=== PATIENT | female | born 1935 | race Caucasian/White ===

== ENCOUNTER 2018-05-23 07:03 | Outpatient (CLI) | payer MEDICARE, OTHER | END 2018-05-23 07:04 | disposition critical access hospital (66) | LOC: EMS 07:03 | PROVIDERS: ATTEND Surgery | DX: R11.10 Vomiting, unspecified (principal); R19.7 Diarrhea, unspecified | CPT/HCPCS: A0425; A0427 ==

== ENCOUNTER 2018-05-23 07:37 | Observation (INO) | payer MEDICARE, OTHER ==
[2018-05-23] MEDS ORDERED: ONDANSETRON 4 MG/2 ML VIAL IVP STA (08:07)
[2018-05-23] MEDS ORDERED: SODIUM CHLORIDE 0.9% 1,000 ML IV ONE ×2 (08:07→09:18)
[2018-05-23] MEDS ORDERED: fentaNYL 100 MCG/2 ML VIAL IVP STA (08:08)
--- NOTE | 2018-05-23 08:12 | ED Physician Documentation ---
PD HPI ABD PAIN - Stated complaint Stated Complaint: D/N/V - Chief complaint Chief Complaint: Abd Pain - History obtained from History obtained from: Patient, Family - History of Present Illness Timing - onset: Last night Quality: Aching Location: Other (lower abd.) Associated symptoms: Nausea, Vomiting, Diarrhea. No: Fever Similar symptoms before: Diagnosis (Similar symptoms when hospitalized for bowel obstruction two years ago.) - Additional information Additional information: The patient is an 82-year-old female, visiting here from [place], who presents with vomiting and watery diarrhea that started during the night. She has had multiple episodes of vomiting, and 3 episodes of watery diarrhea. She reports mild lower abdominal pain. She denies fever or dysuria. She had similar symptoms about 2 years ago when she was hospitalized with a bowel obstruction. The bowel obstruction resolved without surgery at that time. She is status post hiatal hernia repair, and status post surgery for a perforated ulcer. Review of Systems Constitutional: denies: Fever Nose: denies: Congestion Throat: denies: Sore throat Cardiac: denies: Chest pain / pressure Respiratory: denies: Dyspnea, Cough GI: reports: Abdominal Pain, Nausea, Vomiting, Diarrhea : denies: Dysuria Skin: denies: Rash Musculoskeletal: reports: Extremity swelling (chronically). 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 Acidophilus/L. Rhamnosus 1 each PO DAILY 05/23/18 05/23/18 [Probiotic 15 Billion Cell Cap] Levothyroxine [Synthroid] 25 mcg PO DAILY 05/23/18 05/23/18 Melatonin 10 mg PO QPM 05/23/18 05/23/18 Simvastatin 40 mg PO QPM 05/23/18 05/23/18 Sotalol HCl [Sotalol AF] 120 mg PO DAILY 05/23/18 05/23/18 Trospium Chloride 20 mg PO BID 05/23/18 05/23/18 Vit A/Vit C/Vit E/Zinc/Copper 1 cap PO BID 05/23/18 05/23/18 [Preservision Areds Softgel] - Allergies Allergies/Adverse Reactions: Allergies Allergy/AdvReac Type Severity Reaction Status Date / Time diltiazem [From Cardizem] Allergy Rash Verified 05/23/18 07:47 tramadol AdvReac Nausea Verified 05/23/18 07:47 - Social History Does the pt smoke?: No Smoking Status: Never smoker Does the pt drink ETOH?: No Does the pt have substance abuse?: No - Immunizations Immunizations are current?: Yes PD ED PE NORMAL - Vitals Vital signs reviewed: Yes (borderline systolic hypertension) - General General: Alert and oriented X 3, Well developed/nourished, Other (Appears fatigued.) - HEENT HEENT: Atraumatic, Pharynx benign, Other (Dry mucous membranes.) - Neck Neck: No adenopathy, No JVD - Cardiac Cardiac: No murmur, Other (regular rate, irregularly irregular rhythm.) - Respiratory Respiratory: No respiratory distress, Clear bilaterally - Abdomen Abdomen: Soft, Other (Diminished bowel tones, with mild tenderness to palpation in the right lower quadrant, without rebound or guarding.) - Back Back: No CVA TTP - Derm Derm: No rash - Extremities Extremities: No calf tenderness / cord, Other (Trace pedal edema bilaterally.) - Neuro Neuro: Alert and oriented X 3, No motor deficit, Normal speech Results - Vitals Vitals: Vital Signs - 24 hr 05/23/18 05/23/18 05/23/18 07:42 08:00 10:00 Temperature 36.2 C L Heart Rate 76 73 82 Respiratory 16 13 Rate Blood Pressure 142/62 H 140/64 H O2 Saturation 94 96 94 05/23/18 11:00 Temperature Heart Rate 87 Respiratory 15 Rate Blood Pressure 141/62 H O2 Saturation 96 Oxygen O2 Source Room air - Labs Labs: Laboratory Tests 05/23/18 05/23/18 05/23/18 08:25 08:25 09:25 WBC 10.8 RBC 4.48 Hgb 15.4 Hct 44.9 MCV 100.2 H MCH 34.3 H MCHC 34.2 RDW 13.0 Plt Count 195 MPV 7.9 Neut # (Auto) 9.1 H Lymph # (Auto) 0.7 L Traill # (Auto) 0.7 Eos # (Auto) 0.2 Baso # (Auto) 0.1 Absolute Nucleated RBC 0.00 Nucleated RBC % 0.0 Sodium 138 Potassium 4.3 Chloride 103 Carbon Dioxide 27 Anion Gap 8.0 BUN 27 H Creatinine 1.0 Estimated GFR (MDRD) 53 L Glucose 133 H Calcium 9.3 Total Bilirubin 0.9 AST 20 ALT 15 Alkaline Phosphatase 86 Total Protein 7.2 Albumin 4.0 Globulin 3.2 Albumin/Globulin Ratio 1.3 Lipase 34 Urine Color YELLOW Urine Clarity HAZY Urine pH 6.0 Ur Specific [place] 1.015 Urine Protein NEGATIVE Urine Glucose (UA) NEGATIVE Urine Ketones NEGATIVE Urine Occult Blood NEGATIVE Urine Nitrite POSITIVE H Urine Bilirubin NEGATIVE Urine Urobilinogen 0.2 (NORMAL) Ur Leukocyte Esterase TRACE H Urine RBC 0-5 Urine WBC >25 H Ur Squamous Epith Cells RARE Squamous Urine Bacteria Moderate H Ur Microscopic Review INDICATED Urine Culture Comments INDICATED - Rads (name of study) CT abd/pelvis Radiology: Prelim report reviewed, EMP read contemporaneously, See rad report ( 1) Early or incomplete small bowel obstruction with short segment of wall thickening in the mid ileum. Small bowel 3.3 cm. 2) Right lower lobe infiltrate. 3) Distended gallbladder with intrahepatic ductal dilatation with normal-appearing common bile duct. 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 There is no evidence of abscess or perforation. There is an incidental finding of right lower lobe infiltrate seen on the CT scan. The patient does not have any pulmonary symptoms, and has a normal white count of 10.8. Her urinalysis, which was not available while in the emergency department, came back positive for greater than 25 white cells per high powered field and moderate bacteria, consistent with UTI. BUN is elevated at 27, with a creatinine of 1.0, suggestive of dehydration. Treatment in the emergency department included administration of normal saline IV, Zofran 4 mg IV, fentanyl 50 mcg IV, and GI cocktail. I discussed her condition with Dr. Quintana, who accepts her for further evaluation and treatment. Departure - Departure Disposition: ED Place in Observation Clinical Impression: Small bowel obstruction, Dehydration Urinary tract infection Qualifiers: Urinary tract infection type: acute cystitis Hematuria presence: without hematuria Qualified Code(s): N30.00 - Acute cystitis without hematuria Condition: Stable Discharge Date/Time: 05/23/18 12:53
[2018-05-23 08:29] LABS: BASOPHILS # (AUTO) 0.1 10^3/uL (0.0-0.1); BASOPHILS % (AUTO) 0.5 %; EOSINOPHILS # (AUTO) 0.2 10^3/uL (0.0-0.7); EOSINOPHILS % (AUTO) 2.2 %; HGB - HEMOGLOBIN 15.4 g/dL (12.0-16.0); LYMPHOCYTES # (AUTO) 0.7 10^3/uL (1.5-3.5); LYMPHOCYTES % (AUTO) 6.9 %; MEAN CORPUSCULAR HEMOGLOBIN 34.3 pg (27.0-31.0); MEAN CORPUSCULAR HGB CONC 34.2 g/dL (32.0-36.0); MEAN CORPUSCULAR VOLUME 100.2 fL (81.0-99.0); MEAN PLATELET VOLUME 7.9 fL (7.9-10.8); MONOCYTES # (AUTO) 0.7 10^3/uL (0.0-1.0); MONOCYTES % (AUTO) 6.5 %; NEUTROPHILS # (AUTO) 9.1 10^3/uL (1.5-6.6); NEUTROPHILS % (AUTO) 83.9 %; PLT - PLATELET COUNT 195 10^3/uL (130-450); RED BLOOD COUNT 4.48 10^6/uL (4.20-5.40); WHITE BLOOD COUNT 10.8 x10^3/uL (4.8-10.8)
[2018-05-23 08:42] LABS: ALBUMIN/GLOBULIN RATIO 1.3 (1.0-2.2); BILIRUBIN,TOTAL 0.9 mg/dL (0.2-1.0); CALCIUM 9.3 mg/dL (8.5-10.3); TOTAL PROTEIN 7.2 g/dL (6.7-8.2)
[2018-05-23] MEDS ORDERED: IOPAMIDOL-300 100 ML VIAL ONE (08:45)
[2018-05-23] MEDS ORDERED: IOPAMIDOL-300 100 ML VIAL IVP ONE (09:03)
--- NOTE | 2018-05-23 09:29 | CT Report ---
Reason: abdominal pain with vomiting; prior h/o bowel obst Procedure Date: 05/23/2018 Accession Number: [id number] / [id number] Procedure: CT - Abdomen/Pelvis W/ CPT Code: FULL RESULT: EXAM: CT ABDOMEN AND PELVIS EXAM DATE: 05/23/2018 09:00 AM. CLINICAL HISTORY: Abdominal pain with vomiting; prior h/o bowel obst. COMPARISONS: None. TECHNIQUE: Routine helical CT imaging was performed through the abdomen and pelvis. IV contrast: ISOVUE 300 100mL. Enteric contrast: No. Reconstructions: Coronal and sagittal. In accordance with CT protocol optimization, one or more of the following dose reduction techniques were utilized for this exam: automated exposure control, adjustment of mA and/or KV based on patient size, or use of iterative reconstructive technique. FINDINGS: Lung Bases: Right lower lobe infiltrate. Liver: Normal. No masses. Calcification posterior to right lobe liver. Gallbladder/Bile Ducts: Distended. Mild intrahepatic ductal dilatation. Common bile duct does not appear dilated Spleen: Normal. Pancreas: Normal. Adrenal Glands: Normal. Kidneys: Right kidney normal. Left kidney nonobstructing calcification upper pole 8 mm Peritoneal Cavity/Bowel: Dilated small bowel loops to mid ileum. There is short segment of wall thickening in the mid ileum (5, 19) (3, 56) mid pelvis. Small bowel loops maximally 3.3 cm. Sigmoid diverticulosis. No free fluid in the abdomen. Small less than 1 cm retroperitoneal, mesenteric lymph nodes. Pelvic Organs: Normal. The bladder and visualized pelvic organs are within normal limits. Vasculature: No aneurysms or other significant abnormality. Bones: DJD spine. Grade 1 retrolisthesis L1 on L2, L2 on L3 Other: None. IMPRESSION: 1. Early or incomplete small bowel obstruction with short segment of wall thickening in the mid ileum. Small bowel 3.3 cm. 2. Right lower lobe infiltrate. 3. Distended gallbladder with intrahepatic ductal dilatation with normal-appearing common bile duct. 4. Sigmoid diverticulosis RADIA
[2018-05-23 09:56] LABS: BILIRUBIN,URINE NEGATIVE (NEGATIVE); GLUCOSE, URINE (UA) NEGATIVE (NEGATIVE); KETONES,URINE (UA) NEGATIVE (NEGATIVE); LEUKOCYTE ESTERASE, URINE TRACE (NEGATIVE); NITRITE,URINE POSITIVE (NEGATIVE); OCCULT BLOOD,URINE NEGATIVE (NEGATIVE); PROTEIN,URINE NEGATIVE (NEGATIVE); UROBILINOGEN,URINE 0.2 (NORMAL) E.U./dL (NORMAL)
[2018-05-23 10:08] LABS: CLARITY,URINE HAZY (CLEAR)
[2018-05-23 10:20] LABS: BACTERIA,URINE Moderate /HPF (None Seen); RBC,URINE 0-5 /HPF (0-5); SQUAMOUS EPITHELIAL CELL,UR RARE Squamous (<= Few)
[2018-05-23] MEDS ORDERED: MAG HYDROX/AL HYDROX/SIMETH 30 ML UDC PO STA (10:31)
[2018-05-23] MEDS ORDERED: PROCHLORPERAZINE 10 MG/2 ML VIAL IVP PRN ×2 (11:23→13:09)
[2018-05-23] MEDS ORDERED: ONDANSETRON ODT 4 MG TABLET TL PRN ×2 (11:23→13:09)
[2018-05-23] MEDS ORDERED: ONDANSETRON 4 MG/2 ML VIAL IVP PRN ×2 (11:23→13:09)
[2018-05-23] MEDS ORDERED: SODIUM CHLORIDE FLUSH 0.9% 10 ML SYRINGE IVP PRN ×2 (11:23→13:09)
[2018-05-23] MEDS ORDERED: HYDROmorphone 0.5 MG/0.5 ML SYRINGE IVP PRN ×2 (11:23→13:09)
[2018-05-23] MEDS ORDERED: SODIUM CHLORIDE 0.9% 1,000 ML IV SCH (12:00)
--- NOTE | 2018-05-23 13:05 | HISTORY & PHYSICAL EXAMINATION ---
Chief Complaint - Chief Complaint Chief Complaint: Nausea, Vomiting, Diarrhea History of Present Illness - Admitted From Admitted From:: ED - History Obtained From Records Reviewed: Yes History obtained from: Patient Exam Limitations: None - History of Present Illness HPI Comment/Other: 82 yo female with pmh of atrial fibrillation, macular degeneration, chronic diarrhea, hypertension, hyperlipidemia, previous small bowel obstruction presents to the ED following episode of nausea, vomiting, and diarrhea. Patient states she had a meal with her and son last night, of which she is the only symptomatic individual. Patient states her stomach was 'hard' last night when she went to bed. She awoke this morning and on ambulating to the bathroom began to have nausea and profuse vomiting. Following 15 minutes of vomiting, she began to have 3 episodes of watery diarrhea. She also states abdominal pain in the RLQ on onset of n/v/d. Patient states that she has had a cough since the episode of vomiting started. Patient states that she had a small bowel obstruction 3 years prior which did not require surgical intervention. She has had two abdominal surgeries to repair a perforated ulcer and a hiatal hernia. Her last colonoscopy was 4-5 years ago. She follows a applied mathematician, Dr. Quiroga at the [facility], for chronic diarrhea which has been controlled by fiber with an appointment on 06/03/18. Patient states that her last episode of diarrhea was 4 days prior and lasted one hour. Patient denies hemetemesis, hematochezia, fever, chills, chest pain, shortness of breath, recent illness, recent hospital stay. Patient is on Eliquis for her atrial fibrillation and is compliant. 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 Social History Notes: 82 yo female that lives with her spouse and her grand- daughter in [place]. She is visiting her son that lives in [place]. He moved to the [place] last year and has visited every year. She traveled on Sunday to visit with him. She cooks, cleans and drives. She does not require walk assist. She is retired from the [employer]. She never smoked and drinks socially ~ twice a year. No recreational substance hx. - Substance History Use: Uses substance without health or social issues: NONE Abuse: Recurrent use of substance despite neg consequences: NONE Dependence: Experiences withdrawal or developed tolerances: NONE - POLST Patient has POLST: No POLST Status: Full Code Meds/Allgy - Home Medications Home Medications: Ambulatory Orders Medication Instructions Recorded Confirmed Amitriptyline [Elavil] 25 mg PO QPM 05/23/18 05/23/18 Apixaban [Eliquis] 5 mg PO BID 05/23/18 05/23/18 Cranberry Fruit Extract [Cranberry] 200 mg PO BID 05/23/18 05/23/18 Fiber Gummy 12 g PO DAILY 05/23/18 05/23/18 L. Acidophilus/L. Rhamnosus 1 each PO DAILY 05/23/18 05/23/18 [Probiotic 15 Billion Cell Cap] Levothyroxine [Synthroid] 25 mcg PO DAILY 05/23/18 05/23/18 Melatonin 10 mg PO QPM 05/23/18 05/23/18 Simvastatin 40 mg PO QPM 05/23/18 05/23/18 Sotalol HCl [Sotalol AF] 120 mg PO DAILY 05/23/18 05/23/18 Trospium Chloride 20 mg PO BID 05/23/18 05/23/18 Vit A/Vit C/Vit E/Zinc/Copper 1 cap PO BID 05/23/18 05/23/18 [Preservision Areds Softgel] - Allergies Allergies/Adverse Reactions: Allergies Allergy/AdvReac Type Severity Reaction Status Date / Time diltiazem [From Cardizem] Allergy Rash Verified 05/23/18 07:47 tramadol AdvReac Nausea Verified 05/23/18 07:47 Review of Systems - Constitutional Constitutional: reports: Poor appetite. denies: Fatigue, Fever, Chills - Eyes Eyes: denies: Pain, Blurred vision - Ears, Nose & Throat Ears, Nose & Throat: reports: Sore throat, Hoarseness (Following vomiting) - Cardiovascular Cariovascular: reports: Irregular heart rate (chronic atrial fibrillation). denies: Palpitations, Chest pain - Respiratory Respiratory: reports: Cough (Starting following vomiting), Wheezing - Gastrointestinal Gastrointestinal: reports: Abdominal pain (RLQ), Diarrhea, Vomiting, Bile emesis. denies: Abdominal distention - Genitourinary Genitourinary: denies: Dysuria - Musculoskeletal Musculoskeletal: denies: Muscle pain - Integumentary Integumentary: denies: Rash - Neurological Neurological: denies: General weakness, Headache - Psychiatric Psychiatric: denies: Depression - Endocrine Endocrine: denies: Polyuria, Polydypsia, Polyphagia - Hematologic/Lymphatic Hematologic/Lymphatic: denies: Anemia - All Other Systems All Other Systems: reports: Reviewed and negative Prior Level of Functionality: 82 yo female lives with her and grand daughter in [place]. She traveled to [facility] to visit with her son who moved here last year. She states that she does not use walking assist. Is able to cook, clean and drive. She has 3 children and a good support system around her. She does not require home oxygenation. She is retired from the [employer]. She stays active and attempts to visit her children whenever she can. Exam - Vital Signs Reviewed Vital Signs: Yes Vital Signs: Vital Signs x48h Temp Pulse Resp BP Pulse Ox 05/23/18 12:00 89 15 140/65 H 97 05/23/18 11:00 87 15 141/62 H 96 05/23/18 10:00 82 94 05/23/18 08:00 73 13 140/64 H 96 05/23/18 07:42 36.2 C L 76 16 142/62 H 94 - Physical Exam General Appearance: positive: No acute distress Eyes Bilateral: positive: Normal inspection, PERRL ENT: positive: ENT inspection nml, No signs of dehydration Neck: positive: Nml inspection Respiratory: positive: Chest non-tender, No respiratory distress, Wheezes. negative: Rales, Rhonchi Cardiovascular: positive: No murmur, No gallop, Irregularly irregular Peripheral Pulses: positive: 2+ Abdomen: positive: No organomegaly, No distention, Tenderness, Mass (RLQ). negative: Non-tender (RLQ), Nml bowel sounds (Decreased) Back: positive: Nml inspection Skin: positive: Color nml, No rash Extremities: positive: Non-tender, Full ROM, Nml appearance, No pedal edema Neurologic/Psychiatric: positive: Oriented x3, Mood/affect nml Conclusion/Plan - Problem List (1) Small bowel obstruction Conclusion/Plan: Patient presents to ER with n/v/d with onset at 0600 day of presentation. Pt n/v controlled by medication. CT confirms early partial small bowel obstruction. She does have risk factors for adhesions with previous abdominal surgery. However she has not had a colonoscopy in a few years, could she have a neoplasm? Does n ot look like a volvulus on CT. Plan: NPO IVF Stool culture surgery consult if she develops fever or worse WBC (2) Aspiration pneumonia due to vomit Conclusion/Plan: CT Abdomen reveals right lower lobe infiltrate. Patient confirms cough started after vomiting episodes. Patient wheezing on physical exam. Plan: IV unasyn Monitor vtials monitor for fever or WBC Qualifiers: Laterality: right Lung location: lower lobe of lung Qualified Code(s): J69.0 - Pneumonitis due to inhalation of food and vomit (3) Atrial fibrillation Conclusion/Plan: Chronic issue. Patient rate controlled. Patient on eliquis. Plan: Continue home medication Monitor vitals. while NPO eliquis held. Use lovenox. Qualifiers: Atrial fibrillation type: chronic Qualified Code(s): I48.2 - Chronic atrial fibrillation (4) Essential hypertension Conclusion/Plan: Chronic issue. Mildly elevated here. Systolic is 140-170/62-78 Plan: Continue home medication. Monitor Vitals. - Lab Results Lab results reviewed: Yes Fish Bones: 05/23/18 08:25 05/23/18 08:25 - Diagnostic Imaging Results Diagnostic Imaging Results: positive: Final report reviewed Diagnostic Imaging Results Comments: CT Abdomen and Pelvis 05/23/19 0900 Impression: 1. Early or incomplete small bowel obstruction with short segment of wall thickening in the mid ileum. Small bowel 3.3 cm. 2. Right lower lobe infiltrate 3. Distended gallbladder with intrahepatic ductal dilatation with normal appearing common bile duct 4. Sigmoid Diverticulosis Reading Radiologist: Helga Wakefield MD 05/23/18 0929 - EKG Results EKG Interpreted Independently: No Core Measures - Anticipated LOS I expect patient to be DC'd or transferred within 96 hours.: Yes - DVT/VTE - Prophylaxis VTE/DVT Device ordered at admit?: Yes - Stroke - Rehab Assessment Rehab services assessment to be ordered?: No - AMI - Statin at Admit Aspirin Prescribed on Admit: No
[2018-05-23] MEDS: SODIUM CHLORIDE 0.9% 1,000 ML IV SCH (14:04)
[2018-05-23] MEDS ORDERED: SODIUM CHLORIDE FLUSH 0.9% 10 ML SYRINGE IVP SCH (17:00)
[2018-05-23] MEDS: SODIUM CHLORIDE FLUSH 0.9% 10 ML SYRINGE IVP SCH (18:51)
[2018-05-24] MEDS: SODIUM CHLORIDE 0.9% 1,000 ML IV SCH (01:03)
[2018-05-24] MEDS: SODIUM CHLORIDE FLUSH 0.9% 10 ML SYRINGE IVP SCH ×2 (01:04→09:50)
[2018-05-24 06:20] LABS: BASOPHILS % (AUTO) 0.3 %; EOSINOPHILS # (AUTO) 0.3 10^3/uL (0.0-0.7); HGB - HEMOGLOBIN 13.3 g/dL (12.0-16.0); LYMPHOCYTES # (AUTO) 1.7 10^3/uL (1.5-3.5); LYMPHOCYTES % (AUTO) 19.8 %; MEAN CORPUSCULAR HEMOGLOBIN 33.9 pg (27.0-31.0); MEAN CORPUSCULAR HGB CONC 33.5 g/dL (32.0-36.0); MEAN CORPUSCULAR VOLUME 101.1 fL (81.0-99.0); MEAN PLATELET VOLUME 7.8 fL (7.9-10.8); MONOCYTES # (AUTO) 0.6 10^3/uL (0.0-1.0); MONOCYTES % (AUTO) 7.4 %; NEUTROPHILS # (AUTO) 5.9 10^3/uL (1.5-6.6); NEUTROPHILS % (AUTO) 68.5 %; PLT - PLATELET COUNT 176 10^3/uL (130-450); RED BLOOD COUNT 3.94 10^6/uL (4.20-5.40); RED CELL DISTRIBUTION WIDTH 12.7 % (12.0-15.0); WHITE BLOOD COUNT 8.6 x10^3/uL (4.8-10.8)
[2018-05-24 06:36] LABS: CALCIUM 8.4 mg/dL (8.5-10.3); CREATININE 0.8 mg/dL (0.4-1.0)
--- NOTE | 2018-05-24 08:39 | PROVIDER PROGRESS NOTE ---
Subjective - Prog Note Date Prog Note Date: 05/24/18 Prog Note Time: 07:30 - Subjective Pt reports feeling: Improved Subjective: 82 yo female with pmh of atrial fibrillation, macular degeneration, chronic diarrhea, hypertension, hyperlipidemia, previous small bowel obstruction presents to the ED following episode of nausea, vomiting, and diarrhea. Patient started on unoysn to cover UTI and possible aspiration pneumonia. Patient is no longer having a productive cough. Patient has flatus. Patient denies any bowel movement. Patient denies abdominal pain, fever, chills, nausea, vomiting, shortness of breath, chest pain. Patient states she was able to sleep throughout the night. Patient is concerned about her time of stay as her flight back to [place] is on Sunday. Current Medications - Current Medications Current Medications: Current Medications Generic Name Dose Route Start Last Admin Trade Name Freq PRN Reason Stop Dose Admin Sodium Chloride 1,000 mls @ 100 mls/hr 05/23/18 13:00 05/24/18 01:03 Normal Saline 0.9% IV 05/24/18 17:59 100 mls/hr .Q10H JONNY Administration Sodium Chloride 10 ml 05/23/18 17:00 05/24/18 01:04 Normal Saline Flush 0.9% IVP Not Given 0100,0900,1700 JONNY Objective - Vital Signs/Intake & Output Reviewed Vital Signs: Yes Vital Signs: Vital Signs x48h Temp Pulse Resp BP Pulse Ox 05/24/18 08:00 37.0 C 73 16 128/44 L 92 05/24/18 04:29 37.2 C 85 18 151/49 H 93 Intake & Output: Intake & Output 05/21/18 05/22/18 05/23/18 05/24/18 23:59 23:59 23:59 23:59 Intake Total 2000 990 Output Total 400 Balance 1600 990 - Objective General Appearance: positive: No acute distress, Alert Eyes Bilateral: positive: Normal inspection, PERRL ENT: positive: ENT inspection nml, No signs of dehydration Neck: positive: Nml inspection Respiratory: positive: Chest non-tender, No respiratory distress, Wheezes. negative: Rales, Rhonchi Cardiovascular: positive: No murmur, No gallop, Irregularly irregular Peripheral Pulses: 2+ Radial (R), 2+ Radial (L) Abdomen: positive: Non-tender, No organomegaly, Nml bowel sounds, No distention Rectal: negative: Bloody stool Back: positive: Nml inspection Skin: positive: Color nml, No rash, Warm, Dry Extremities: positive: Non-tender, Full ROM, No pedal edema Neurologic/Psychiatric: positive: Oriented x3, Mood/affect nml - Lab Results Fish Bones: 05/24/18 05:58 05/24/18 05:58 Other Labs: Lab Results x24hrs 05/24/18 05/24/18 05/23/18 Range/Units 05:58 05:58 09:25 WBC 8.6 (4.8-10.8) x10^3/uL RBC 3.94 L (4.20-5.40) 10^6/uL Hgb 13.3 (12.0-16.0) g/dL Hct 39.8 (37.0-47.0) % MCV 101.1 H (81.0-99.0) fL MCH 33.9 H (27.0-31.0) pg MCHC 33.5 (32.0-36.0) g/dL RDW 12.7 (12.0-15.0) % Plt Count 176 (130-450) 10^3/uL MPV 7.8 L (7.9-10.8) fL Neut # (Auto) 5.9 (1.5-6.6) 10^3/uL Lymph # (Auto) 1.7 (1.5-3.5) 10^3/uL [place] # (Auto) 0.6 (0.0-1.0) 10^3/uL Eos # (Auto) 0.3 (0.0-0.7) 10^3/uL Baso # (Auto) 0.0 (0.0-0.1) 10^3/uL Absolute Nucleated RBC 0.00 x10^3/uL Nucleated RBC % 0.0 /100WBC Sodium 137 (135-145) mmol/L Potassium 3.8 (3.5-5.0) mmol/L Chloride 105 (101-111) mmol/L Carbon Dioxide 26 (21-32) mmol/L Anion Gap 6.0 (6-13) BUN 16 (6-20) mg/dL Creatinine 0.8 (0.4-1.0) mg/dL Estimated GFR (MDRD) 69 L (>89) Glucose 105 H (70-100) mg/dL Calcium 8.4 L (8.5-10.3) mg/dL Total Bilirubin (0.2-1.0) mg/dL AST (10-42) IU/L ALT (10-60) IU/L Alkaline Phosphatase (42-121) IU/L Total Protein (6.7-8.2) g/dL Albumin (3.2-5.5) g/dL Globulin (2.1-4.2) g/dL Albumin/Globulin Ratio (1.0-2.2) Lipase (22-51) U/L Urine Color YELLOW Urine Clarity HAZY (CLEAR) Urine pH 6.0 (5.0-7.5) PH Ur Specific [place] 1.015 (1.002-1.030) Urine Protein NEGATIVE (NEGATIVE) mg/dL Urine Glucose (UA) NEGATIVE (NEGATIVE) mg/dL Urine Ketones NEGATIVE (NEGATIVE) mg/dL Urine Occult Blood NEGATIVE (NEGATIVE) Urine Nitrite POSITIVE H (NEGATIVE) Urine Bilirubin NEGATIVE (NEGATIVE) Urine Urobilinogen 0.2 (NORMAL) (NORMAL) E.U./dL Ur Leukocyte Esterase TRACE H (NEGATIVE) Urine RBC 0-5 (0-5) /HPF Urine WBC >25 H (0-5) /HPF Ur Squamous Epith Cells RARE Squamous (<= Few) Urine Bacteria Moderate H (None Seen) /HPF Ur Microscopic Review INDICATED Urine Culture Comments INDICATED 05/23/18 Range/Units 08:25 WBC (4.8-10.8) x10^3/uL RBC (4.20-5.40) 10^6/uL Hgb (12.0-16.0) g/dL Hct (37.0-47.0) % MCV (81.0-99.0) fL MCH (27.0-31.0) pg MCHC (32.0-36.0) g/dL RDW (12.0-15.0) % Plt Count (130-450) 10^3/uL MPV (7.9-10.8) fL Neut # (Auto) (1.5-6.6) 10^3/uL Lymph # (Auto) (1.5-3.5) 10^3/uL [place] # (Auto) (0.0-1.0) 10^3/uL Eos # (Auto) (0.0-0.7) 10^3/uL Baso # (Auto) (0.0-0.1) 10^3/uL Absolute Nucleated RBC x10^3/uL Nucleated RBC % /100WBC Sodium 138 (135-145) mmol/L Potassium 4.3 (3.5-5.0) mmol/L Chloride 103 (101-111) mmol/L Carbon Dioxide 27 (21-32) mmol/L Anion Gap 8.0 (6-13) BUN 27 H (6-20) mg/dL Creatinine 1.0 (0.4-1.0) mg/dL Estimated GFR (MDRD) 53 L (>89) Glucose 133 H (70-100) mg/dL Calcium 9.3 (8.5-10.3) mg/dL Total Bilirubin 0.9 (0.2-1.0) mg/dL AST 20 (10-42) IU/L ALT 15 (10-60) IU/L Alkaline Phosphatase 86 (42-121) IU/L Total Protein 7.2 (6.7-8.2) g/dL Albumin 4.0 (3.2-5.5) g/dL Globulin 3.2 (2.1-4.2) g/dL Albumin/Globulin Ratio 1.3 (1.0-2.2) Lipase 34 (22-51) U/L Urine Color Urine Clarity (CLEAR) Urine pH (5.0-7.5) PH Ur Specific [place] (1.002-1.030) Urine Protein (NEGATIVE) mg/dL Urine Glucose (UA) (NEGATIVE) mg/dL Urine Ketones (NEGATIVE) mg/dL Urine Occult Blood (NEGATIVE) Urine Nitrite (NEGATIVE) Urine Bilirubin (NEGATIVE) Urine Urobilinogen (NORMAL) E.U./dL Ur Leukocyte Esterase (NEGATIVE) Urine RBC (0-5) /HPF Urine WBC (0-5) /HPF Ur Squamous Epith Cells (<= Few) Urine Bacteria (None Seen) /HPF Ur Microscopic Review Urine Culture Comments ABX Reporting Has patient been on IV antibiotics over the past 48 hours?: Yes Assessment/Plan - Problem List (1) Small bowel obstruction Impression: Patient presents to ER with n/v/d with onset at 0600 day of presentation. Pt n/v controlled by medication. CT confirms early partial small bowel obstruction. She does have risk factors for adhesions with previous abdominal surgery. However she has not had a colonoscopy in a few years, could she have a neoplasm? Does not look like a volvulus on CT. Will receive KUB X-ray this morning to see about progress of suspected partial bowel obstruction. Plan: KUB xray NPO IVF Stool culture surgery consult if she develops fever or worse WBC (2) Aspiration pneumonia due to vomit Impression: CT Abdomen reveals right lower lobe infiltrate. Patient confirms cough started after vomiting episodes. Patient wheezing on physical exam. Plan: IV unasyn s Monitor vtials monitor for fever or WBC Qualifiers: Laterality: right Lung location: lower lobe of lung Qualified Code(s): J69.0 - Pneumonitis due to inhalation of food and vomit (3) Urinary tract infection Impression: Laboratory Tests 05/23/18 09:25 Urine Nitrite POSITIVE H Ur Leukocyte Esterase TRACE H Urine WBC >25 H Ur Squamous Epith Cells RARE Squamous Urine Bacteria Moderate H Plan: IV Unasyn IVF Monitor Vitals Qualifiers: Urinary tract infection type: acute cystitis Hematuria presence: without hematuria Qualified Code(s): N30.00 - Acute cystitis without hematuria (4) Atrial fibrillation Impression: Chronic issue. Patient rate controlled. Patient on eliquis. Plan: Continue home medication Monitor vitals. while NPO eliquis held. Use lovenox. Qualifiers: Atrial fibrillation type: chronic Qualified Code(s): I48.2 - Chronic atrial fibrillation (5) Essential hypertension Impression: Chronic issue. Mildly elevated here. Systolic is 126-170/41-78 Plan: Continue home medication. Monitor Vitals.
[2018-05-24] MEDS ORDERED: POLYETHYLENE GLYCOL 3350 17 GM PACKET PO SCH ×2 (09:00)
[2018-05-24] MEDS: AMPICILLIN/SULBACTAM 3 GM in SODIUM CHLORIDE 0.9% MINIBAG 100 ML IV SCH ×2 (09:47→13:57)
--- NOTE | 2018-05-24 09:50 | XRAY Report ---
Reason: follow sbo Procedure Date: 05/24/2018 Accession Number: [id number] / [id number] Procedure: XR - Abdomen 1 View X-Ray CPT Code: 01712 FULL RESULT: EXAM: ABDOMEN RADIOGRAPHY EXAM DATE: 05/24/2018 08:32 AM. CLINICAL HISTORY: Follow small bowel obstruction. COMPARISON: ABDOMEN/PELVIS W/ 05/23/2018 8:57 AM. TECHNIQUE: 1 view. FINDINGS: Bowel Gas Pattern: Within normal limits. No dilated loops. Given that there is persistent gas in the region of the rectal vault, transit from small bowel to large bowel is preserved when comparing to the CT from 05/23/2018. Other: None. IMPRESSION: No small bowel obstruction. RADIA
[2018-05-24] MEDS ORDERED: ENOXAPARIN 40 MG/0.4 ML SYRINGE SUBQ SCH (10:00)
[2018-05-24] MEDS ORDERED: LEVOTHYROXINE 25 MCG TABLET PO SCH (12:00)
[2018-05-24] MEDS ORDERED: SOTALOL 80 MG TABLET PO SCH (12:00)
[2018-05-24] MEDS ORDERED: APIXABAN 5 MG TABLET PO SCH (12:00)
--- NOTE | 2018-05-24 14:34 | DISCHARGE SUMMARY ---
Discharge Summary Admit Date: 05/23/18 Discharge Date: 05/24/18 Discharging Provider: Aubree Quintana MD Primary Care Provider: Zoraida Quiroga DNP, FUEL EFFICIENT AUTOMOBILE DESIGNER, STAFF ASSISTANT Code Status: Attempt Resuscitation Condition at Discharge: Good Discharge Disposition: 01 Home, Self Care - DIAGNOSES Discharge Diagnoses with Status of Each Condition: 1. Small Bowel Obstruction - Resolved 2. Aspiration Pneumonia - Improved 3. E coli Urinary Tract Infection - Improved 4. Atrial Fibrillation: rate controlled, chronic 5. Essential Hypertension: chronic, controlled - HPI History of Present Illness: 82 yo female with pmh of atrial fibrillation, macular degeneration, chronic diarrhea for 10 years, hypertension, hyperlipidemia, previous small bowel obstruction presents to the ED following episode of nausea, vomiting, and diarrhea. Patient states she had a meal with her and son last night, of which she is the only symptomatic individual. Patient states her stomach was 'hard' last night when she went to bed. She awoke this morning and on ambulating to the bathroom began to have nausea and profuse vomiting. Following 15 minutes of vomiting, she began to have 3 episodes of watery diarrhea. She also states ab dominal pain in the RLQ on onset of n/v/d. Patient states that she has had a cough since the episode of vomiting started. Patient states that she had a small bowel obstruction 3 years prior which did not require surgical intervention. She has had two abdominal surgeries to repair a perforated ulcer and a hiatal hernia. Her last colonoscopy was 4-5 years ago. She follows a commercial collections driver, Dr. Quiroga at the [facility], for chronic diarrhea which has been controlled by fiber with an appointment on 06/03/18. She was treated for bacterial overgrowth with antibiotics, probiotics and seemed to improve temporarily but the diarrhea returned. Patient states that her last episode of diarrhea was 4 days prior and lasted one hour. Patient denies hemetemesis, hematochezia, fever, chills, chest pain, shortness of breath, recent illness, recent hospital stay. Patient is on Eliquis for her atrial fibrillation and is compliant. 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 Patient evaluated in the ER and received a CT that revealed partial small bowel obstruction, right lower lobe infiltrate. Labs positive for UTI. Patient was kept NPO, started on IVF, SCD for DVT prophylaxis, and zofran for nausea. Patient did not have another episode of emesis or diarrhea while inpatient. Patients abdominal pain improved overnight. Patient was re-evaluated in the morning with physical exam show soft, non-distended abdomen. KUB x-ray reveals bowel gas pattern within normal limits, no dilated loops. Patient t olerated PO test without nausea, vomiting. Patient right lower lobe infiltrate treated as a possible aspiration pneumonia. Patient stated that the cough and wheezing was new onset following her emesis. Patient was covered for gram negative bacteria with IV unasyn with improvement of cough and wheezing. Treatment with IV unasyn covers UTI as well. Patient discharged with PO augmentin for treatment of aspiration pneumonia and UTI. Urine culture was positive for E. coli. Discussed with patient, son and treatment plan and diagnosis with understanding of treatment and plan. Has followup with GI, Dr. Quiroga at [facility] on 06/03. - ALLERGIES Allergies/Adverse Reactions: Allergies Allergy/AdvReac Type Severity Reaction Status Date / Time diltiazem [From Cardizem] Allergy Rash Verified 05/23/18 07:47 tramadol AdvReac Nausea Verified 05/23/18 07:47 - MEDICATIONS Home Medications: Ambulatory Orders Medication Instructions Recorded Confirmed Fiber Gummy 12 g PO DAILY 05/23/18 05/23/18 RX: Amitriptyline [Elavil] 25 mg PO QPM 05/23/18 05/23/18 RX: Apixaban [Eliquis] 5 mg PO BID 05/23/18 05/23/18 RX: Cranberry Fruit Extract 200 mg PO BID 05/23/18 05/23/18 [Cranberry] RX: L. Acidophilus/L. Rhamnosus 1 each PO DAILY 05/23/18 05/23/18 [Probiotic 15 Billion Cell Cap] RX: Levothyroxine [Synthroid] 25 mcg PO DAILY 05/23/18 05/23/18 RX: Melatonin 10 mg PO QPM 05/23/18 05/23/18 RX: Simvastatin 40 mg PO QPM 05/23/18 05/23/18 RX: Sotalol HCl [Sotalol AF] 120 mg PO DAILY 05/23/18 05/23/18 RX: Trospium Chloride 20 mg PO BID 05/23/18 05/23/18 RX: Vit A/Vit C/Vit E/Zinc/Copper 1 cap PO BID 05/23/18 05/23/18 [Preservision Areds Softgel] Amox/Clav 500/125 [Augmentin] 1 each PO Q12H #12 tablet 05/24/18 - PHYSICAL EXAM AT DISCHARGE General Appearance: positive: No acute distress, Alert Eyes Bilateral: positive: Normal inspection, PERRL ENT: positive: ENT inspection nml Neck: positive: Nml inspection Respiratory: positive: Chest non-tender, No respiratory distress, Wheezes. negative: Rales, Rhonchi Cardiovascular: positive: Irregularly irregular. negative: No murmur, No gallop Peripheral Pulses: positive: 2+ Abdomen: positive: Non-tender, No organomegaly, Nml bowel sounds, No distention Rectal: negative: Bloody stool Back: positive: Nml inspection Skin: positive: Color nml, No rash, Warm, Dry Extremities: positive: Non-tender, Full ROM, Nml appearance, No pedal edema Neurologic/Psychiatric: positive: Oriented x3, Mood/affect nml - LABS Result Diagrams: 05/24/18 05:58 05/24/18 05:58 - DIAGNOSTIC IMAGING Diagnostic Imaging Results: Final report reviewed Diagnostic Imaging Results Comments: CT ABDOMEN AND PELVIS EXAM DATE: 05/23/2018 09:00 AM. CLINICAL HISTORY: Abdominal pain with vomiting; prior h/o bowel obst. COMPARISONS: None. TECHNIQUE: Routine helical CT imaging was performed through the abdomen and pelvis. IV contrast: ISOVUE 300 100mL. Enteric contrast: No. Reconstructions: Coronal and sagittal. In accordance with CT protocol optimization, one or more of the following dose reduction techniques were utilized for this exam: automated exposure control, adjustment of mA and/or KV based on patient size, or use of iterative reconstructive technique. FINDINGS: Lung Bases: Right lower lobe infiltrate. Liver: Normal. No masses. Calcification posterior to right lobe liver. Gallbladder/Bile Ducts: Distended. Mild intrahepatic ductal dilatation. Common bile duct does not appear dilated Spleen: Normal. Pancreas: Normal. Adrenal Glands: Normal. Kidneys: Right kidney normal. Left kidney nonobstructing calcification upper pole 8 mm Peritoneal Cavity/Bowel: Dilated small bowel loops to mid ileum. There is short segment of wall thickening in the mid ileum (5, 19) (3, 56) mid pelvis. Small bowel loops maximally 3.3 cm. Sigmoid diverticulosis. No free fluid in the abdomen. Small less than 1 cm retroperitoneal, mesenteric lymph nodes. Pelvic Organs: Normal. The bladder and visualized pelvic organs are within normal limits. Vasculature: No aneurysms or other significant abnormality. Bones: DJD spine. Grade 1 retrolisthesis L1 on L2, L2 on L3 Other: None. IMPRESSION: 1. Early or incomplete small bowel obstruction with short segment of wall thickening in the mid ileum. Small bowel 3.3 cm. 2. Right lower lobe infiltrate. 3. Distended gallbladder with intrahepatic ductal dilatation with normal-appearing common bile duct. 4. Sigmoid diverticulosis ABDOMEN RADIOGRAPHY EXAM DATE: 05/24/2018 08:32 AM. CLINICAL HISTORY: Follow small bowel obstruction. COMPARISON: ABDOMEN/PELVIS W/ 05/23/2018 8:57 AM. TECHNIQUE: 1 view. FINDINGS: Bowel Gas Pattern: Within normal limits. No dilated loops. Given that there is persistent gas in the region of the rectal vault, transit from small bowel to large bowel is preserved when comparing to the CT from 05/23/2018. Other: None. IMPRESSION: No small bowel obstruction. - FOLLOW UP Follow Up: GI physician - Dr. Quiroga at [facility] on 06/03 - TIME SPENT Time Spent in Discharge (Minutes): 35
--- NOTE | 2018-05-24 15:17 | Discharge Plan ---
Discharge Plan Disposition: Home, Self Care Condition: Good Prescriptions: Amox/Clav 500/125 [Augmentin] 1 each PO Q12H #12 tablet Diet: Regular (low residue diet, avoid lots of fiber foods for now) Activity Restrictions: Activity as Tolerated Shower Restrictions: No Driving Restrictions: No Instruction Topics: Amoxicillin Clavulanic Acid tablets, Diet Low Residue Additional Instructions or Follow Up instructions: You were placed in observation into our hospital because of sudden onset of abdominal pain, as well as diarrhea. We found you to have a partial bowel obstruction where the small bowel meets the large intestine in the right lower quadrant of your abdomen. You do have a history of a bowel obstruction in the past and it resolved on its own. The only other thing we noticed was a urinary tract infection. After treatment with IV fluids, pain medicine, nausea medicines you were able to resolve the bowel obstruction without any other intervention on our part. We think that your doctor in [place] is treating you for small bowel overgrowth. That is because of the diarrhea. But I do not think this is what causes the bow el obstruction. You had been eating quite a bit of fiber in the days leading to this and the fiber may have created a "ball" that obstructed you. When you first came in there was a large mass of stool in the right lower quadrant, that was completely gone the next day. Asked your dictaphone operator if you are a candidate for a powder called Questran that may help your diarrhea. They may also want to do a few more studies now that you have had a recurrent bowel obstruction. The person you see at the Department of gastroenterology at the [facility] is a nurse practitioner named Zoraida Quiroga. We will try and make sure that we send copies of the CAT scan and our discharge summary to her. In the meantime, stay on a low residue, low fiber diet for the next few days until you get home. Please follow-up with your regular primary care provider in [place] as well as your dictaphone operator. No Smoking: If you smoke, Please STOP! Call for help. Follow-up with: Provider,Other [Primary Care Provider] -
[2018-05-24 15:50] VITALS: BP 138/54
[2018-05-24] MEDS ORDERED: AMITRIPTYLINE 25 MG TABLET PO SCH (21:00)
[2018-05-24] MEDS ORDERED: ATORVASTATIN 10 MG TABLET PO SCH (21:00)
== END 2018-05-24 15:51 | disposition home or self-care (01) ==
LOC: ED 07:37 → OBS 11:23 → ED 12:53
PROVIDERS: ADMIT Specialist; ATTEND Specialist
DX: K56.600 Partial intestinal obstruction, unspecified as to cause (principal); J69.0 Pneumonitis due to inhalation of food and vomit; N30.00 Acute cystitis without hematuria; B96.20 Unspecified Escherichia coli [E. coli] as the cause of diseases classified elsewhere; I48.2 Chronic atrial fibrillation; I10 Essential (primary) hypertension; E86.0 Dehydration; K52.9 Noninfective gastroenteritis and colitis, unspecified; E03.9 Hypothyroidism, unspecified; E78.5 Hyperlipidemia, unspecified; Z79.01 Long term (current) use of anticoagulants; Z87.11 Personal history of peptic ulcer disease; Z86.14 Personal history of Methicillin resistant Staphylococcus aureus infection; Z79.899 Other long term (current) drug therapy
CPT/HCPCS: 36415; 74018; 74177; 80048; 80053; 81001; 83690; 85025; 87086; 87181; 87640; 96361; 96365; 96366; 96372; 96375; 99284; A9270; G0378; J1650; Q9967; 81003; 87493; 96374